=== PATIENT | female | born 1990 | race American Indian/Alaskan Native ===

== ENCOUNTER 2016-11-07 18:51 | Emergency (ER) | payer OTHER ==
[2016-11-07 18:51] VITALS: BMI 25.6
[2016-11-07 19:02] VITALS: BP 109/63; PULSE 74; RESP 17; TEMP 98.8; O2SAT 99
--- NOTE | 2016-11-07 19:25 | C.PDOC ---
History Of Present Illness 26 yr old female presents to the ER with complaints of severe mouth pain and headache s/p right lower wisdom tooth extraction 6hrs ago. Patient was prescribed Ibuprofen 800mg, Amoxicillin and Tylenol #3; states she did not fill the prescription for Tylenol #3. States she has not taken any medicine since procedure. Denies fever, mouth swelling, bleeding, throat swelling, weakness or numbness. 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 Constitutional: Negative for: Fever ENT: Positive for: Other ([place] tooth extraction). Negative for: Mouth Swelling, Throat Swelling Neurological: Positive for: Headache. Negative for: Weakness, Numbness Physical Exam - Physical Exam Appears: Non-toxic, No Acute Distress Skin: Warm, Dry Head: Atraumatic, Normacephalic Eye(s): bilateral: Normal Inspection, PERRL, EOMI, Photophobia Nose: Normal, No Flaring Oral Mucosa: Moist Teeth: Other ((+) Right lower, mild swelling, blood clot. No active bleeding. ) Neck: Normal ROM Chest: Symmetrical, No Tenderness Cardiovascular: Rhythm Regular, No Murmur Respiratory: Normal Breath Sounds, No Rales, No Rhonchi, No Stridor, No Wheezing Extremity: Bilateral: Atraumatic, Normal ROM Neurological/Psych: Oriented x3, Normal Speech, Normal Motor ED Course And Treatment O2 Sat by Pulse Oximetry: 99 (room air) Pulse Ox Interpretation: Normal Medical Decision Making Medical Decision Making: PLAN: * Toradol IM PROGRESS: Upon reevaluation patient reports pain has improved. Advise patient to fill her prescriptions and to take medications every 6-8 hours as needed. 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 - Scribe Statement The provider has reviewed the documentation as recorded by the Scribe Isabel Miller All medical record entries made by the Scribe were at my direction and personally dictated by me. I have reviewed the chart and agree that the record accurately reflects my personal performance of the history, physical exam, medical decision making, and the department course for this patient. I have also personally directed, reviewed, and agree with the discharge instructions and disposition.
== END 2016-11-07 20:14 | disposition home or self-care (01) ==
LOC: C.ER 18:51
DX: G89.18 Other acute postprocedural pain (principal); K08.139 Complete loss of teeth due to caries, unspecified class
CPT/HCPCS: 96372; 99283; J1885